=== PATIENT | male | born 1960 | race Caucasian/White ===

== ENCOUNTER 2017-08-08 06:47 | Day surgery (SDC) | payer OTHER ==
[~2017-08-08 06:47] MED LIST: Lactated Ringers 1,000 ML IV SCH; Sodium Chloride 0.9% 10 ML Syringe FLUSH PRN
[2017-08-08] MEDS ORDERED: Ketorolac 30 MG/ML SDV IVPUSH ONE (08:00)
[2017-08-08] MEDS ORDERED: fentaNYL 100 MCG/2 ML SDV IV ONE (08:00)
[2017-08-08] MEDS ORDERED: Lactated Ringers 1,000 ML IV ONE (08:00)
[2017-08-08] MEDS ORDERED: ceFAZolin 2 GM in Premix Bag 1 BAG IV ONE (08:00)
[2017-08-08] MEDS ORDERED: Ondansetron 4 MG/2 ML SDV IVPUSH ONE (08:00)
[2017-08-08] MEDS ORDERED: Midazolam 1 MG/ML 2 ML SDV IV ONE (08:00)
[2017-08-08] MEDS ORDERED: Propofol 200 MG/20 ML SDV IV ONE (08:00)
[2017-08-08] MEDS ORDERED: Bupivacaine 0.5% 30 ML SDV ONE (08:23)
[2017-08-08] MEDS ORDERED: Lidocaine 1% with EPINEPHrine 1:100,000 20 ML MDV ONE (08:24)
--- NOTE | 2017-08-08 08:59 | PCM.OPNOTE ---
- General Post-Op/Procedure Note Date of Surgery/Procedure: 08/08/17 Operative Procedure(s): right inguinal hernia repair with mesh Findings: indirect rih Pre Op Diagnosis: rih Post-Op Diagnosis: Same Anesthesia Technique: General LMA, Local (8 mlo 1 % lido with epi/0.5% buvipicaine) Primary Surgeon: Ernesto Sarah Anesthesia Provider: Elvis Jimenez Pathology: none Complications: None Condition: Good Free Text/Narrative:: see dictation #[id number]
--- NOTE | 2017-08-08 10:13 | OR ---
DATE OF OPERATION: 08/08/2017 SURGEON: Ernesto Sarah MD PROCEDURE PERFORMED: Right inguinal hernia repair. PREOPERATIVE DIAGNOSIS: Right inguinal hernia. POSTOPERATIVE DIAGNOSIS: An indirect right inguinal hernia born out of obstruction or gangrene. INDICATIONS FOR PROCEDURE: This is a 56-year-old white male with a symptomatic right inguinal hernia. He was offered and accepted repair. INTRAOPERATIVE FINDINGS: Indirect hernia was found. This was repaired with a Marlex PerFix plug, size large, reference number [id number], lot number [id number], expiration date 2019-12-09, and a total of 8 mL of a 1:1 mixture of 1% lidocaine with epinephrine, 0.5% bupivacaine were used. DESCRIPTION OF PROCEDURE: After an excellent LMA anesthetic was administered, the patient was prepped and draped in the usual sterile manner. The planned incision site was then infiltrated with 1:1 mixture of lidocaine. A well was developed approximately 1 cm medial to the anterior-superior iliac spine and a deep injection was performed. A 5-cm incision was then carried out. Underlying subcu fat was divided using electrocautery. The superficial-inferior epigastric vessels were clamped, divided, and tied with 2-0 Vicryl ties. Aponeurosis of the external oblique was exposed. More local was injected underneath the aponeurosis. A aliya was made in the aponeurosis and carried out through the external ring. Cord was then mobilized and controlled with a 1-inch Mallard drain. It was skeletonized and a cord lipoma and a hernia sac were dissected free. Cord lipoma was clamped, divided, and ligated with a 2-0 Vicryl tie. The hernia sac was then reduced. The defect was repaired with a large PerFix plug, which was inserted into the internal ring and tacked into position with interrupted 2-0 Prolene. The overlay mesh was then laid on the floor of the inguinal canal and tacked into position, starting at the symphysis pubis and coming out lateral to the internal ring. The keyhole was closed with 2-0 Prolene as well. SorbaFix was then used to fix the mesh to the floor of the inguinal canal. The area was irrigated. The aponeurosis of the external oblique was closed with a running 3-0 Vicryl. Subcu fat and Jim's fascia were reapproximated using 3-0 Vicryl, and the wound was closed with 4-0 Vicryl. Needle, sponge, and instrument counts were reported as correct. The patient was taken to recovery room in a good condition. /[id number] /MODL
== END 2017-08-08 10:35 | disposition home or self-care (01) ==
LOC: FB.SDS 06:47
PROVIDERS: ATTEND Surgery
DX: K40.90 Unilateral inguinal hernia, without obstruction or gangrene, not specified as recurrent (principal)
CPT/HCPCS: 49505; C1781; J0690; J1885; J2250; J2405; J2704; J3010; J7120